=== PATIENT | male | born 1950 | race Two or more races ===

== ENCOUNTER 2017-08-04 11:56 | Inpatient (IN) | payer OTHER, MEDICAID ==
[~2017-08-04] VITALS: Ht 182.9 cm; Wt 59.9 kg
[2017-08-04] MEDS ORDERED: SODIUM CHLORIDE 0.9% 1,000 ML IV ONE ×2 (12:36→15:06)
[2017-08-04] MEDS ORDERED: ONDANSETRON HCL 4MG/2ML VIAL IV STA (12:36)
[2017-08-04] MEDS ORDERED: MORPHINE SULFATE 10 MG/ML CPJ IV ONE ×2 (12:45→15:15)
[2017-08-04 13:04] LABS: BASOPHILS % 0.7 % (0.0-2.0); EOSINOPHILS % 2.7 % (0.0-5.0); HEMOGLOBIN. 9.1 g/dL (14.0-18.0); LYMPHOCYTES % 11.4 % (20.0-50.0); MEAN CORPUSCULAR HEMOGLOBIN 39.3 pg (28.0-32.0); MEAN CORPUSCULAR VOLUME 112.2 fL (80.0-94.0); MEAN PLATELET VOLUME 6.8 fl (7.4-10.4); MONOCYTES % 7.6 % (2.0-8.0); NEUTROPHILS % 77.6 % (40.0-76.0); PLATELET 198 x1000/uL (130-400); RED BLOOD CELL COUNT 2.31 mill/uL (4.7-6.1); RED CELL DISTRIBUTION WIDTH 14.8 % (11.6-14.6)
[2017-08-04 13:11] LABS: CLARITY URINE CLEAR (CLEAR); COLOR URINE YELLOW (YELLOW); GLUCOSE URINE NEGATIVE (NEGATIVE); KETONES URINE TRACE (NEGATIVE); LEUKOCYTE ESTERASE URINE NEGATIVE (NEGATIVE); NITRITE URINE NEGATIVE (NEGATIVE); OCCULT BLOOD URINE 3+ (NEGATIVE); PH URINE 5.5 (4.5-8.0); PROTEIN URINE 2+ (NEGATIVE); SPECIFIC GRAVITY URINE 1.019 (1.005-1.030); UROBILINOGEN URINE 0.2 E.U./dL (0.2-1.0)
[2017-08-04 13:23] LABS: CARBON DIOXIDE 19 mEq/L (21-32); CHLORIDE 106 mEq/L (98-107)
[2017-08-04 13:25] LABS: TROPONIN I < 0.02 ng/mL (0.00-0.04)
[2017-08-04 13:29] LABS: *AMPHETAMINES SCREEN URINE NEGATIVE (NEGATIVE); *BARBITURATES SCREEN URINE NEGATIVE (NEGATIVE); *BENZODIAZEPINES SCREEN URINE NEGATIVE (NEGATIVE); *COCAINE SCREEN URINE NEGATIVE (NEGATIVE); CANNABINOID URINE SCREEN PRESUMTIVE POSITIVE (NEGATIVE); METHADONE URINE SCREEN NEGATIVE (NEGATIVE); OPIATES URINE SCREEN NEGATIVE (NEGATIVE); PHENCYCLIDINE URINE SCREEN NEGATIVE (NEGATIVE)
[2017-08-04 13:36] LABS: PLATELET ESTIMATE NORMAL
[2017-08-04] MEDS ORDERED: ONDANSETRON HCL 4MG/2ML VIAL IV ONE (15:15)
[2017-08-04] MEDS ORDERED: CEFTRIAXONE 1 G PREMIX 50 ML IV ONE (15:15)
[2017-08-04] MEDS ORDERED: DIPHENHYDRAMINE 50MG/ML VIAL IV PRN (20:15)
[2017-08-04] MEDS ORDERED: MAGNESIUM/ALUMINUM HYDROXIDE/SIMETHICONE 30ML UDC PO PRN (20:15)
[2017-08-04] MEDS ORDERED: ACETAMINOPHEN 325MG TABLET PO PRN (20:15)
[2017-08-04] MEDS ORDERED: KETOROLAC 30MG/ML VIAL IV NR (20:30)
[2017-08-04] MEDS ORDERED: HYDRALAZINE 20MG/ML VIAL IV PRN (20:30)
[2017-08-04 20:40] VITALS: BP 150/87
[2017-08-04] MEDS: HYDROMORPHONE HCL/PF 2MG/ML CPJ IV PRN (21:50)
[2017-08-04] MEDS: TAMSULOSIN HCL 0.4MG SR CAPSULE PO SCH (22:26)
[2017-08-04] MEDS: SODIUM CHLORIDE 0.9% 1,000 ML IV SCH (23:44)
[2017-08-04] MEDS: CLONIDINE 0.1MG TABLET PO PRN (23:52)
[2017-08-05] VITALS: BP 165/88
[2017-08-05] MEDS: HYDROMORPHONE HCL/PF 2MG/ML CPJ IV PRN ×5 (02:51→23:56)
[2017-08-05 04:00] VITALS: BP 134/69
[2017-08-05] MEDS ORDERED: BACL-141 PO (05:26)
[2017-08-05 07:09] LABS: EOSINOPHILS % 4.5 % (0.0-5.0); HEMATOCRIT. 22.8 % (42.0-52.0); HEMOGLOBIN. 8.1 g/dL (14.0-18.0); LYMPHOCYTES % 12.6 % (20.0-50.0); MEAN CORPUSCULAR HEMOGLOBIN 40.8 pg (28.0-32.0); MEAN CORPUSCULAR VOLUME 114.6 fL (80.0-94.0); MEAN PLATELET VOLUME 7.5 fl (7.4-10.4); MONOCYTES % 10.3 % (2.0-8.0); NEUTROPHILS % 71.6 % (40.0-76.0); PLATELET 187 x1000/uL (130-400); RED BLOOD CELL COUNT 1.99 mill/uL (4.7-6.1); RED CELL DISTRIBUTION WIDTH 14.9 % (11.6-14.6)
[2017-08-05 07:56] LABS: PHOSPHORUS 4.8 mg/dL (2.5-4.9)
[2017-08-05 08:00] VITALS: BP 131/78
[2017-08-05 08:29] LABS: VITAMIN B12 SERUM 287 pg/mL (211-911)
[2017-08-05] MEDS: PANTOPRAZOLE SODIUM 40 MG/VIAL IV SCH (08:43)
[2017-08-05] MEDS: TAMSULOSIN HCL 0.4MG SR CAPSULE PO SCH (08:43)
[2017-08-05 11:56] VITALS: BP 143/65
[2017-08-05] MEDS ORDERED: CYANOCOBALAMIN 1000MCG/ML VIAL IM SCH (13:15)
[2017-08-05] MEDS: SODIUM CHLORIDE 0.9% 1,000 ML IV SCH ×2 (13:55→23:49)
[2017-08-05 15:46] VITALS: BP 143/76
[2017-08-05 20:00] VITALS: BP 148/77
[2017-08-06] VITALS: BP 144/72
[2017-08-06 04:00] VITALS: BP 144/69
[2017-08-06 07:21] LABS: BASOPHILS % 0.5 % (0.0-2.0); EOSINOPHILS % 4.5 % (0.0-5.0); HEMATOCRIT. 22.2 % (42.0-52.0); HEMOGLOBIN. 7.9 g/dL (14.0-18.0); LYMPHOCYTES % 13.4 % (20.0-50.0); MEAN CORPUSCULAR HEMOGLOBIN 42.5 pg (28.0-32.0); MEAN CORPUSCULAR VOLUME 119.2 fL (80.0-94.0); MEAN PLATELET VOLUME 7.5 fl (7.4-10.4); MONOCYTES % 11.1 % (2.0-8.0); NEUTROPHILS % 70.5 % (40.0-76.0); PLATELET 187 x1000/uL (130-400); RED BLOOD CELL COUNT 1.87 mill/uL (4.7-6.1); RED CELL DISTRIBUTION WIDTH 14.5 % (11.6-14.6)
[2017-08-06 08:00] VITALS: BP 166/83
[2017-08-06] MEDS: TAMSULOSIN HCL 0.4MG SR CAPSULE PO SCH (08:17)
[2017-08-06] MEDS: PANTOPRAZOLE SODIUM 40 MG/VIAL IV SCH (08:17)
[2017-08-06] MEDS: HYDROMORPHONE HCL/PF 2MG/ML CPJ IV PRN ×4 (08:18→22:10)
[2017-08-06] MEDS: ONDANSETRON HCL 4MG/2ML VIAL IV PRN ×2 (08:29→21:30)
[2017-08-06 12:00] VITALS: BP 148/69
[2017-08-06 16:00] VITALS: BP 155/86
[2017-08-06] MEDS: SODIUM CHLORIDE 0.9% 1,000 ML IV SCH (16:48)
[2017-08-06 20:00] VITALS: BP 165/66
[2017-08-07] VITALS: BP 159/87
[2017-08-07] MEDS: SODIUM CHLORIDE 0.9% 1,000 ML IV SCH ×2 (00:48→10:43)
[2017-08-07] MEDS: HYDROMORPHONE HCL/PF 2MG/ML CPJ IV PRN ×5 (00:55→21:02)
[2017-08-07 04:00] VITALS: BP 165/77
[2017-08-07 06:58] LABS: BASOPHILS % 0.5 % (0.0-2.0); EOSINOPHILS % 3.5 % (0.0-5.0); HEMATOCRIT. 23.3 % (42.0-52.0); HEMOGLOBIN. 7.8 g/dL (14.0-18.0); LYMPHOCYTES % 10.9 % (20.0-50.0); MEAN CORPUSCULAR HEMOGLOBIN 38.2 pg (28.0-32.0); MEAN CORPUSCULAR VOLUME 113.3 fL (80.0-94.0); MONOCYTES % 9.5 % (2.0-8.0); NEUTROPHILS % 75.6 % (40.0-76.0); PLATELET 181 x1000/uL (130-400); RED BLOOD CELL COUNT 2.05 mill/uL (4.7-6.1); RED CELL DISTRIBUTION WIDTH 13.9 % (11.6-14.6)
[2017-08-07 07:51] VITALS: BP 157/84
[2017-08-07] MEDS: PANTOPRAZOLE SODIUM 40 MG/VIAL IV SCH (08:34)
[2017-08-07] MEDS: AMLODIPINE 5MG TABLET PO SCH (08:35)
[2017-08-07] MEDS: TAMSULOSIN HCL 0.4MG SR CAPSULE PO SCH (08:35)
[2017-08-07 09:03] LABS: CARBON DIOXIDE 17 mEq/L (21-32); CHLORIDE 108 mEq/L (98-107); CREATINE KINASE 393 IU/L (39-308); PHOSPHORUS 5.1 mg/dL (2.5-4.9); TOTAL IRON BINDING CAPACITY 225 ug/dL (250-450)
[2017-08-07 12:07] VITALS: BP 101/67
[2017-08-07] MEDS ORDERED: SODIUM BICARBONATE 8.4% 1 MEQ/ML 50ML SYR IV SCH (15:45)
[2017-08-07 16:00] VITALS: BP 155/75
[2017-08-07 20:00] VITALS: BP 150/76
[2017-08-07 22:57] LABS: BG BASE EXCESS -10.1 mmol/L (-2.0-2.0); BG CARBOXYHEMOGLOBIN 0.3 % (0.5-1.5); BG DEOXYHEMOGLOBIN 2.3 % (0.0-5.0); BG FRACTION INSPIRED OXYGEN 21; BG HCO3 ACT 15.5 mmol/L (22.0-26.0); BG METHEMOGLOBIN 0.5 % (0.0-1.5); BG OXYGEN SATURATION 97.7 % (92.0-98.5); BG OXYHEMOGLOBIN 96.9 % (94.0-97.0); BG PO2 110.2 mmHg (75.0-100.0); BG SAMPLE SITE RIGHT RADIAL; BG TOTAL HEMOGLOBIN 8.3 g/dL (12.0-18.0); BG VENT MODE ROOM AIR
[2017-08-08] VITALS: BP 163/92
[2017-08-08] MEDS ORDERED: CEFTRIAXONE 1 G PREMIX 50 ML IV SCH
[2017-08-08] MEDS: SODIUM CHLORIDE 0.9% 1,000 ML IV SCH (00:21)
[2017-08-08] MEDS: CLONIDINE 0.1MG TABLET PO PRN (00:34)
[2017-08-08] MEDS: HYDROMORPHONE HCL/PF 2MG/ML CPJ IV PRN ×3 (00:34→09:27)
[2017-08-08 03:44] VITALS: BP 135/85
[2017-08-08] MEDS: CITRIC ACID/SODIUM CITRATE SOLN 30ML UDC PO SCH ×2 (05:12→14:59)
[2017-08-08 07:34] VITALS: BP 157/68
[2017-08-08 07:36] LABS: BASOPHILS % 0.6 % (0.0-2.0); EOSINOPHILS % 5.9 % (0.0-5.0); HEMATOCRIT. 22.1 % (42.0-52.0); HEMOGLOBIN. 7.6 g/dL (14.0-18.0); LYMPHOCYTES % 14.6 % (20.0-50.0); MEAN CORPUSCULAR HEMOGLOBIN 37.8 pg (28.0-32.0); MEAN CORPUSCULAR VOLUME 110.5 fL (80.0-94.0); MEAN PLATELET VOLUME 7.4 fl (7.4-10.4); MONOCYTES % 12.2 % (2.0-8.0); NEUTROPHILS % 66.7 % (40.0-76.0); PLATELET 192 x1000/uL (130-400); RED CELL DISTRIBUTION WIDTH 13.9 % (11.6-14.6)
[2017-08-08] MEDS: PANTOPRAZOLE SODIUM 40 MG/VIAL IV SCH (08:23)
[2017-08-08] MEDS: AMLODIPINE 5MG TABLET PO SCH (08:23)
[2017-08-08] MEDS: TAMSULOSIN HCL 0.4MG SR CAPSULE PO SCH (08:23)
[2017-08-08 12:24] VITALS: BP 157/89
[2017-08-08] MEDS ORDERED: EPOETIN ALFA 10000UNITS/ML VIAL SUBCUT NR ×3 (14:30→21:00)
[2017-08-08] MEDS ORDERED: EPOETIN ALFA 10000UNITS/ML VIAL SUBCUT SCH (14:30)
[2017-08-08] MEDS ORDERED: HYDRALAZINE HCL 50MG TABLET PO SCH ×2 (14:30→21:00)
[2017-08-08] MEDS ORDERED: HYDRALAZINE 20MG/ML VIAL IV PRN (14:30)
[2017-08-08 15:12] VITALS: BP 144/86
[2017-08-09] MEDS ORDERED: EPOETIN ALFA 10000UNITS/ML VIAL SUBCUT SCH (21:00)
== END 2017-08-08 16:30 | disposition home or self-care (01) | DRG 683 ==
LOC: ER 12:49 → 8WST 15:30 → EDBEDREQ 15:37 → ENRESERV 19:43
PROVIDERS: ADMIT Internal Medicine; ATTEND Internal Medicine
DX: N17.9 Acute kidney failure, unspecified (principal); I12.0 Hypertensive chronic kidney disease with stage 5 chronic kidney disease or end stage renal disease; E87.5 Hyperkalemia; K76.0 Fatty (change of) liver, not elsewhere classified; N13.2 Hydronephrosis with renal and ureteral calculous obstruction; R16.0 Hepatomegaly, not elsewhere classified; B19.20 Unspecified viral hepatitis C without hepatic coma; N18.5 Chronic kidney disease, stage 5; D64.9 Anemia, unspecified; D75.89 Other specified diseases of blood and blood-forming organs; E86.9 Volume depletion, unspecified; F17.210 Nicotine dependence, cigarettes, uncomplicated; Z86.73 Personal history of transient ischemic attack (TIA), and cerebral infarction without residual deficits; Z79.899 Other long term (current) drug therapy; N40.0 Benign prostatic hyperplasia without lower urinary tract symptoms; K80.20 Calculus of gallbladder without cholecystitis without obstruction
CPT/HCPCS: 36415; 36600; 71010; 74176; 76705; 80048; 80053; 80076; 80305; 81001; 82375; 82550; 82575; 82607; 82805; 83540; 83550; 83690; 83735; 83880; 84100; 84484; 85025; 85610; 87070; 93005; 96361; 96374; 96375; 99285; C9113; J0696; J0885; J1170; J2270; J2405; J3420; J3490; J7030

== ENCOUNTER 2018-09-20 10:26 | Inpatient (IN) | payer OTHER, MEDICAID ==
[~2018-09-20] VITALS: Ht 177.8 cm; Wt 63.5 kg
[~2018-09-20 10:26] MED LIST: BACL-141 PO
[2018-09-20] MEDS ORDERED: ASPIRIN 81MG TABLET PO ONE (11:30)
[2018-09-20 12:42] LABS: CHLORIDE 103 mEq/L (98-107)
[2018-09-20 12:53] LABS: MEAN CORPUSCULAR HEMOGLOBIN 35.7 pg (28.0-32.0); MEAN CORPUSCULAR VOLUME 104.5 fL (80.0-94.0); MEAN PLATELET VOLUME 6.9 fl (7.4-10.4); PLATELET 170 x1000/uL (130-400); RED BLOOD CELL COUNT 1.77 mill/uL (4.7-6.1); RED CELL DISTRIBUTION WIDTH 18.6 % (11.6-14.6)
[2018-09-20 13:02] LABS: HEMATOCRIT. 18.5 % (42.0-52.0); HEMOGLOBIN. 6.3 g/dL (14.0-18.0)
[2018-09-20 13:33] LABS: PLATELET ESTIMATE NORMAL
[2018-09-20] MEDS ORDERED: ONDANSETRON HCL 4MG/2ML INJ IV ONE (14:00)
[2018-09-20] MEDS ORDERED: DOCUSATE SODIUM 100MG CAPSULE PO PRN (15:15)
[2018-09-20] MEDS ORDERED: HYDROCODONE/APAP 7.5/325MG 1 TAB TABLET PO PRN (15:15)
[2018-09-20] MEDS ORDERED: LORAZEPAM 2MG/ML CPJ IV PRN (15:15)
[2018-09-20] MEDS ORDERED: MAGNESIUM/ALUMINUM HYDROXIDE/SIMETHICONE 30ML UDC PO PRN (15:15)
[2018-09-20] MEDS ORDERED: HYDROMORPHONE HCL/PF 2MG/ML CPJ IV PRN (15:15)
[2018-09-20] MEDS ORDERED: IPRATROPIUM/ALBUTEROL 0.5-3(2.5)MG/3ML NEB INH PRN (15:15)
[2018-09-20] MEDS ORDERED: HYDRALAZINE 20MG/ML VIAL IV PRN ×2 (15:15→19:45)
[2018-09-20] MEDS ORDERED: DIPHENHYDRAMINE 50MG/ML VIAL IV PRN (15:15)
[2018-09-20] MEDS ORDERED: GUAIFENESIN 200MG/10ML SUGAR FREE UDC PO PRN (15:15)
[2018-09-20] MEDS ORDERED: ACETAMINOPHEN 325MG TABLET PO PRN (15:15)
[2018-09-20] MEDS: CLONIDINE 0.1MG TABLET PO PRN (16:33)
[2018-09-20 16:45] LABS: BASOPHILS % 0.8 % (0.0-2.0); EOSINOPHILS % 0.3 % (0.0-5.0); LYMPHOCYTES % 13.2 % (20.0-50.0); MEAN CORPUSCULAR HEMOGLOBIN 34.5 pg (28.0-32.0); MEAN CORPUSCULAR VOLUME 103.1 fL (80.0-94.0); MEAN PLATELET VOLUME 6.7 fl (7.4-10.4); MONOCYTES % 6.5 % (2.0-8.0); NEUTROPHILS % 79.2 % (40.0-76.0); PLATELET 145 x1000/uL (130-400); RED BLOOD CELL COUNT 1.73 mill/uL (4.7-6.1); RED CELL DISTRIBUTION WIDTH 18.7 % (11.6-14.6)
[2018-09-20 16:50] LABS: HEMATOCRIT. 17.8 % (42.0-52.0)
[2018-09-20] MEDS: SODIUM CHLORIDE 0.9% INJ 3ML FLUSH IVF SCH (21:19)
[2018-09-20] MEDS: ONDANSETRON HCL 4MG/2ML INJ IV PRN (21:19)
[2018-09-20 21:29] VITALS: BP 164/70
[2018-09-20 21:39] VITALS: BP 164/70
[2018-09-20 22:51] VITALS: BP 166/77
[2018-09-20 23:05] LABS: CREATINE KINASE MB FRACTION 2.2 ng/mL (0.5-3.6)
[2018-09-20 23:07] VITALS: BP 164/74
[2018-09-20 23:39] VITALS: BP 166/74
[2018-09-21] VITALS (9 sets, daily range): BP systolic 151–179; BP diastolic 69–95
[2018-09-21] MEDS: CLONIDINE 0.1MG TABLET PO PRN (01:20)
[2018-09-21] MEDS: ONDANSETRON HCL 4MG/2ML INJ IV PRN (04:22)
[2018-09-21] MEDS: SODIUM CHLORIDE 0.9% INJ 3ML FLUSH IVF SCH ×3 (06:00→21:55)
[2018-09-21 06:17] LABS: CHLORIDE 106 mEq/L (98-107)
[2018-09-21 06:26] LABS: CREATINE KINASE MB FRACTION 2.2 ng/mL (0.5-3.6)
[2018-09-21 06:28] LABS: CREATINE KINASE 75 IU/L (39-308); LDL CHOLESTEROL 43 mg/dL (5-100); T4 FREE 1.05 ng/dL (0.76-1.46)
[2018-09-21 07:32] LABS: BASOPHILS % 1.4 % (0.0-2.0); EOSINOPHILS % 2.3 % (0.0-5.0); HEMATOCRIT. 26.5 % (42.0-52.0); HEMOGLOBIN. 8.8 g/dL (14.0-18.0); LYMPHOCYTES % 12.7 % (20.0-50.0); MEAN CORPUSCULAR HEMOGLOBIN 32.1 pg (28.0-32.0); MEAN CORPUSCULAR VOLUME 96.2 fL (80.0-94.0); MONOCYTES % 8.1 % (2.0-8.0); NEUTROPHILS % 75.5 % (40.0-76.0); PLATELET 133 x1000/uL (130-400); RED BLOOD CELL COUNT 2.75 mill/uL (4.7-6.1); RED CELL DISTRIBUTION WIDTH 17.6 % (11.6-14.6)
[2018-09-21 08:09] LABS: HDL CHOLESTEROL 148 mg/dL (40-59)
[2018-09-21 15:02] LABS: T4 FREE 1.11 ng/dL (0.76-1.46)
[2018-09-21 15:03] LABS: CREATINE KINASE MB FRACTION 2.1 ng/mL (0.5-3.6)
[2018-09-22] VITALS: BP 132/59
[2018-09-22 00:16] LABS: CREATINE KINASE MB FRACTION 2.2 ng/mL (0.5-3.6)
[2018-09-22 04:00] VITALS: BP 125/70
[2018-09-22] MEDS: SODIUM CHLORIDE 0.9% INJ 3ML FLUSH IVF SCH (06:50)
[2018-09-22 08:00] VITALS: BP 131/75
[2018-09-22 10:00] LABS: CREATINE KINASE MB FRACTION 1.3 ng/mL (0.5-3.6)
[2018-09-22 10:43] VITALS: BP 140/72
[2018-09-23 09:09] LABS: ALBUMIN 3.6 g/dL (2.9-4.4); ALPHA-1-GLOBULIN 0.3 g/dL (0.0-0.4); BETA GLOBULIN 0.9 g/dL (0.7-1.3); GAMMA GLOBULINS 1.5 g/dL (0.4-1.8); GLOBULIN TOTAL 3.7 g/dL (2.2-3.9); M-SPIKE 0.2 g/dL (Not Observed); TOTAL PROTEIN SERUM 7.3 g/dL (6.0-8.5)
[2018-09-24 05:22] LABS: ANTI-NUCLEAR ANTIBODIES DIRECT Negative (Negative); COMPLEMENT C3 88 mg/dL (82-167)
== END 2018-09-22 15:00 | disposition home or self-care (01) | DRG 811 ==
LOC: ER 10:26 → 7WST 14:42 → EDBEDREQTM 14:58 → EDBEDREQ 14:58 → ENRESERV 18:08
PROVIDERS: ADMIT Internal Medicine; ATTEND Internal Medicine
PROC: 30233N1 Transfusion of Nonautologous Red Blood Cells into Peripheral Vein, Percutaneous Approach (ICD-10-PCS; principal; 2018-09-20)
DX: D64.9 Anemia, unspecified (principal); N17.0 Acute kidney failure with tubular necrosis; N18.6 End stage renal disease; E44.0 Moderate protein-calorie malnutrition; I12.0 Hypertensive chronic kidney disease with stage 5 chronic kidney disease or end stage renal disease; R07.89 Other chest pain; E78.5 Hyperlipidemia, unspecified; N28.1 Cyst of kidney, acquired; R74.0 Nonspecific elevation of levels of transaminase and lactic acid dehydrogenase [LDH]; Z86.73 Personal history of transient ischemic attack (TIA), and cerebral infarction without residual deficits; Z68.20 Body mass index [BMI] 20.0-20.9, adult
CPT/HCPCS: 36415; 71045; 76770; 80061; 82550; 82553; 83036; 83880; 84155; 84165; 84439; 84443; 84484; 85379; 86038; 86160; 86850; 86900; 86920; 93005; 93306; 93970; 96374; 96375; 99285; J0360; J1170; J2060; J2405; J7040; J7050; P9016

== ENCOUNTER 2020-03-28 13:59 | Inpatient (IN) | payer MEDICARE, MEDICAID ==
[~2020-03-28] VITALS: Ht 177.8 cm; Wt 60.1 kg
[2020-03-28 15:54] LABS: BASOPHILS % 1.3 % (0.0-2.0); EOSINOPHILS % 1.8 % (0.0-5.0); HEMATOCRIT. 22.3 % (42.0-52.0); HEMOGLOBIN. 7.3 g/dL (14.0-18.0); LYMPHOCYTES % 11.3 % (20.0-50.0); MEAN CORPUSCULAR HEMOGLOBIN 37.3 pg (28.0-32.0); MEAN CORPUSCULAR VOLUME 113.6 fL (80.0-94.0); MEAN PLATELET VOLUME 7.7 fl (7.4-10.4); MONOCYTES % 7.6 % (2.0-8.0); PLATELET 175 x1000/uL (130-400); RED BLOOD CELL COUNT 1.97 mill/uL (4.7-6.1); RED CELL DISTRIBUTION WIDTH 16.7 % (11.6-14.6)
[2020-03-28 15:59] LABS: CHLORIDE 106 mEq/L (98-107)
[2020-03-28 16:05] LABS: C REACTIVE PROTEIN QUANT 1.7 mg/L (0.0-3.0); ETHANOL BLOOD < 10 mg/dL; TOTAL IRON BINDING CAPACITY 340 ug/dL (250-450)
[2020-03-28 16:07] LABS: CREATINE KINASE 58 IU/L (39-308)
[2020-03-28 16:11] LABS: D-DIMER 5.52 mg/L FEU (<0.50); PROTHROMBIN TIME 10.1 sec (9.6-11.0)
[2020-03-28 16:24] LABS: FERRITIN 14 ng/mL (22-322)
[2020-03-28] MEDS ORDERED: SODIUM BICARBONATE 8.4% 1 MEQ/ML 50ML SYR IV ONE (16:30)
[2020-03-28 16:35] LABS: HEPATITIS B SURFACE ANTIGEN NEGATIVE
[2020-03-28] MEDS ORDERED: INSULIN REGULAR (HUMULIN R) 300UNITS/3ML IV ONE (16:45)
[2020-03-28] MEDS ORDERED: CALCIUM CHLORIDE 1GM/10ML SYR IV ONE (16:45)
[2020-03-28] MEDS ORDERED: DEXTROSE 50% WATER 50ML SYRINGE IV ONE (16:45)
[2020-03-28 16:53] LABS: PLATELET ESTIMATE NORMAL
[2020-03-28 17:04] LABS: HEPATITIS A AB IGM NEGATIVE (NEGATIVE)
[2020-03-28 17:33] LABS: BG BASE EXCESS -21.9 mmol/L (-2.0-2.0); BG CARBOXYHEMOGLOBIN 0.6 % (0.5-1.5); BG DEOXYHEMOGLOBIN 1.5 % (0.0-5.0); BG FRACTION INSPIRED OXYGEN 21; BG HCO3 ACT 6.2 mmol/L (22.0-26.0); BG METHEMOGLOBIN 0.3 % (0.0-1.5); BG OXYGEN SATURATION 98.5 % (92.0-98.5); BG OXYHEMOGLOBIN 97.6 % (94.0-97.0); BG PCO2 21.2 mmHg (35.0-45.0); BG PH 7.081 (7.350-7.450); BG PO2 122.2 mmHg (75.0-100.0); BG SAMPLE SITE RIGHT RADIAL; BG VENT MODE ROOM AIR
[2020-03-28] MEDS ORDERED: CEFTRIAXONE 1 G PREMIX 50 ML IV SCH (18:15)
[2020-03-28] MEDS ORDERED: ONDANSETRON HCL 4MG/2ML INJ IV PRN (18:15)
[2020-03-28] MEDS ORDERED: ZOLPIDEM TARTRATE 5MG TABLET PO PRN (18:15)
[2020-03-28] MEDS ORDERED: SODIUM POLYSTYRENE SULFONATE 15 G/60 ML BOT PO NR (22:56)
[2020-03-29] MEDS ORDERED: DIPHENHYDRAMINE 50MG/ML VIAL ONE (02:52)
[2020-03-29 05:07] LABS: BASOPHILS % 0.9 % (0.0-2.0); EOSINOPHILS % 1.2 % (0.0-5.0); LYMPHOCYTES % 14.4 % (20.0-50.0); MEAN CORPUSCULAR HEMOGLOBIN 37.6 pg (28.0-32.0); MEAN CORPUSCULAR VOLUME 111.5 fL (80.0-94.0); MONOCYTES % 12.3 % (2.0-8.0); NEUTROPHILS % 71.2 % (40.0-76.0); PLATELET 120 x1000/uL (130-400); RED BLOOD CELL COUNT 1.72 mill/uL (4.7-6.1); RED CELL DISTRIBUTION WIDTH 16.4 % (11.6-14.6)
[2020-03-29 05:19] LABS: CLARITY URINE CLEAR (CLEAR); COLOR URINE YELLOW (YELLOW); KETONES URINE 2+ (NEGATIVE); LEUKOCYTE ESTERASE URINE TRACE (NEGATIVE); NITRITE URINE NEGATIVE (NEGATIVE); OCCULT BLOOD URINE TRACE (NEGATIVE); PROTEIN URINE 2+ (NEGATIVE); SPECIFIC GRAVITY URINE 1.015 (1.005-1.030); UROBILINOGEN URINE 0.2 E.U./dL (0.2-1.0)
[2020-03-29 05:32] LABS: *AMPHETAMINES SCREEN URINE NEGATIVE (NEGATIVE); *BARBITURATES SCREEN URINE NEGATIVE (NEGATIVE); *BENZODIAZEPINES SCREEN URINE NEGATIVE (NEGATIVE); *COCAINE SCREEN URINE NEGATIVE (NEGATIVE)
[2020-03-29 05:33] LABS: CANNABINOID URINE SCREEN PRESUMTIVE POSITIVE (NEGATIVE); METHADONE URINE SCREEN NEGATIVE (NEGATIVE); OPIATES URINE SCREEN NEGATIVE (NEGATIVE); PHENCYCLIDINE URINE SCREEN NEGATIVE (NEGATIVE)
[2020-03-29 06:40] LABS: HEMATOCRIT. 19.2 % (42.0-52.0); HEMOGLOBIN. 6.5 g/dL (14.0-18.0)
[2020-03-29 12:00] VITALS: BP 158/77
[2020-03-29] MEDS ORDERED: LIDOCAINE HCL 1% 20ML VIAL (Pyxis) INJ ONE (12:58)
[2020-03-29] MEDS: MULTIVITAMINS,THER W-MINERALS TABLET PO SCH (13:07)
[2020-03-29] MEDS: FOLIC ACID 1MG TABLET PO SCH (13:07)
[2020-03-29] MEDS: THIAMINE HCL 100MG TABLET PO SCH (13:07)
[2020-03-29] MEDS: CEFTRIAXONE 1 G PREMIX 50 ML IV SCH (13:08)
[2020-03-29] MEDS: SODIUM BICARBONATE 50 MEQ in SODIUM CHLORIDE 0.45% 1,000 ML IV SCH (15:05)
[2020-03-29 15:23] VITALS: BP 158/80
[2020-03-29 16:00] VITALS: BP 145/77
[2020-03-29] MEDS ORDERED: PNEUMOCOCCAL 23-VAL P-SAC VAC 0.5 ML IM ONE (16:15)
[2020-03-29 17:17] LABS: HEMOGLOBIN 7.1 g/dL (14.0-18.0)
[2020-03-29 17:23] LABS: HEMATOCRIT 20.3 % (42.0-52.0)
[2020-03-29 20:00] VITALS: BP 130/75
[2020-03-29 23:45] VITALS: BP 129/76
[2020-03-30] VITALS (9 sets, daily range): BP systolic 119–153; BP diastolic 63–92
[2020-03-30] MEDS: SODIUM BICARBONATE 50 MEQ in SODIUM CHLORIDE 0.45% 1,000 ML IV SCH (02:50)
[2020-03-30 06:08] LABS: BASOPHILS % 0.9 % (0.0-2.0); EOSINOPHILS % 5.3 % (0.0-5.0); HEMATOCRIT. 22.9 % (42.0-52.0); HEMOGLOBIN. 7.8 g/dL (14.0-18.0); LYMPHOCYTES % 14.2 % (20.0-50.0); MEAN CORPUSCULAR HEMOGLOBIN 33.8 pg (28.0-32.0); MEAN CORPUSCULAR VOLUME 99.5 fL (80.0-94.0); MEAN PLATELET VOLUME 7.9 fl (7.4-10.4); MONOCYTES % 8.6 % (2.0-8.0); PLATELET 91 x1000/uL (130-400); RED CELL DISTRIBUTION WIDTH 21.2 % (11.6-14.6)
[2020-03-30 06:22] LABS: PHOSPHORUS 3.5 mg/dL (2.5-4.9)
[2020-03-30] MEDS: MULTIVITAMINS,THER W-MINERALS TABLET PO SCH (09:14)
[2020-03-30] MEDS: FOLIC ACID 1MG TABLET PO SCH (09:14)
[2020-03-30] MEDS: THIAMINE HCL 100MG TABLET PO SCH (09:15)
[2020-03-30] MEDS: CEFTRIAXONE 1 G PREMIX 50 ML IV SCH (10:12)
[2020-03-30] MEDS: SODIUM CHLORIDE 0.45% 1,000 ML IV SCH (11:35)
[2020-03-30] MEDS: DIPHENHYDRAMINE 25MG CAPSULE PO PRN ×2 (15:45→22:03)
[2020-03-30] MEDS: ACETAMINOPHEN 325MG TABLET PO PRN (15:46)
[2020-03-31] VITALS: BP 140/77
[2020-03-31] MEDS: ACETAMINOPHEN 325MG TABLET PO PRN (03:57)
[2020-03-31] MEDS: SODIUM CHLORIDE 0.45% 1,000 ML IV SCH ×2 (03:59→21:53)
[2020-03-31 04:00] VITALS: BP 125/80
[2020-03-31 06:50] LABS: BASOPHILS % 0.9 % (0.0-2.0); HEMATOCRIT. 23.3 % (42.0-52.0); HEMOGLOBIN. 8.1 g/dL (14.0-18.0); LYMPHOCYTES % 17.3 % (20.0-50.0); MEAN CORPUSCULAR HEMOGLOBIN 34.7 pg (28.0-32.0); MEAN CORPUSCULAR VOLUME 99.8 fL (80.0-94.0); MEAN PLATELET VOLUME 7.8 fl (7.4-10.4); MONOCYTES % 9.2 % (2.0-8.0); NEUTROPHILS % 65.6 % (40.0-76.0); PLATELET 85 x1000/uL (130-400); RED BLOOD CELL COUNT 2.33 mill/uL (4.7-6.1); RED CELL DISTRIBUTION WIDTH 21.3 % (11.6-14.6)
[2020-03-31] MEDS: THIAMINE HCL 100MG TABLET PO SCH (08:13)
[2020-03-31] MEDS: CEFTRIAXONE 1 G PREMIX 50 ML IV SCH (08:13)
[2020-03-31] MEDS: FOLIC ACID 1MG TABLET PO SCH (08:14)
[2020-03-31] MEDS: MULTIVITAMINS,THER W-MINERALS TABLET PO SCH (08:14)
[2020-03-31 08:35] VITALS: BP 148/87
[2020-03-31 11:55] VITALS: BP 136/87
[2020-03-31 16:05] VITALS: BP 131/83
[2020-03-31 20:00] VITALS: BP 142/85
[2020-04-01] VITALS: BP 139/86
[2020-04-01 04:00] VITALS: BP 143/84
[2020-04-01 06:06] LABS: BASOPHILS % 1.4 % (0.0-2.0); EOSINOPHILS % 7.9 % (0.0-5.0); HEMATOCRIT. 24.4 % (42.0-52.0); HEMOGLOBIN. 8.3 g/dL (14.0-18.0); LYMPHOCYTES % 16.5 % (20.0-50.0); MEAN CORPUSCULAR HEMOGLOBIN 33.6 pg (28.0-32.0); MEAN CORPUSCULAR VOLUME 99.1 fL (80.0-94.0); MEAN PLATELET VOLUME 8.1 fl (7.4-10.4); MONOCYTES % 8.7 % (2.0-8.0); NEUTROPHILS % 65.5 % (40.0-76.0); PLATELET 84 x1000/uL (130-400); RED BLOOD CELL COUNT 2.46 mill/uL (4.7-6.1); RED CELL DISTRIBUTION WIDTH 21.4 % (11.6-14.6)
[2020-04-01 08:00] VITALS: BP 150/84
[2020-04-01] MEDS: CEFTRIAXONE 1 G PREMIX 50 ML IV SCH (08:40)
[2020-04-01] MEDS: MULTIVITAMINS,THER W-MINERALS TABLET PO SCH (08:40)
[2020-04-01] MEDS: FOLIC ACID 1MG TABLET PO SCH (08:40)
[2020-04-01] MEDS: DIPHENHYDRAMINE 25MG CAPSULE PO PRN (08:40)
[2020-04-01] MEDS: THIAMINE HCL 100MG TABLET PO SCH (08:40)
[2020-04-01 12:00] VITALS: BP 147/71
[2020-04-01] MEDS: SODIUM CHLORIDE 0.45% 1,000 ML IV SCH ×2 (12:30→15:46)
[2020-04-01 16:00] VITALS: BP_SYST 133; BP_SYST 141; BP_SYST 145; BP_DIAS 76; BP_DIAS 79; BP_DIAS 90
[2020-04-01 20:00] VITALS: BP 155/97
[2020-04-02] VITALS (19 sets, daily range): BP systolic 127–169; BP diastolic 66–105
[2020-04-02] MEDS: SODIUM CHLORIDE 0.45% 1,000 ML IV SCH ×2 (03:17→21:50)
[2020-04-02] MEDS ORDERED: SODIUM BICARBONATE 4% (2.4MEQ) 5ML VIAL IV ONE (09:07)
[2020-04-02] MEDS ORDERED: HEPARIN 1000 UNITS/ML 10ML ONE (09:07)
[2020-04-02] MEDS ORDERED: LIDOCAINE HCL 1% 20ML VIAL (Pyxis) INJ ONE (09:08)
[2020-04-02] MEDS ORDERED: FENTANYL CITRATE/PF 50MCG/ML 2ML VIAL ONE (09:28)
[2020-04-02] MEDS ORDERED: FENTANYL CITRATE/PF 50MCG/ML 2ML VIAL IV NR (09:45)
[2020-04-02] MEDS: FOLIC ACID 1MG TABLET PO SCH (10:40)
[2020-04-02] MEDS: MULTIVITAMINS,THER W-MINERALS TABLET PO SCH (10:40)
[2020-04-02] MEDS: THIAMINE HCL 100MG TABLET PO SCH (10:40)
[2020-04-02] MEDS: TRAMADOL 50MG TABLET PO PRN ×2 (15:55→22:30)
[2020-04-02 19:10] LABS: ANTI-NUCLEAR ANTIBODIES DIRECT Negative (Negative)
[2020-04-03] VITALS (7 sets, daily range): BP systolic 140–190; BP diastolic 82–97
[2020-04-03 06:22] LABS: EOSINOPHILS % 8.4 % (0.0-5.0); HEMATOCRIT. 24.2 % (42.0-52.0); HEMOGLOBIN. 8.3 g/dL (14.0-18.0); LYMPHOCYTES % 13.7 % (20.0-50.0); MEAN CORPUSCULAR HEMOGLOBIN 35.7 pg (28.0-32.0); MEAN CORPUSCULAR VOLUME 103.9 fL (80.0-94.0); MEAN PLATELET VOLUME 8.3 fl (7.4-10.4); MONOCYTES % 12.1 % (2.0-8.0); NEUTROPHILS % 64.8 % (40.0-76.0); PLATELET 109 x1000/uL (130-400); RED BLOOD CELL COUNT 2.33 mill/uL (4.7-6.1); RED CELL DISTRIBUTION WIDTH 20.3 % (11.6-14.6)
[2020-04-03] MEDS: MULTIVITAMINS,THER W-MINERALS TABLET PO SCH (09:07)
[2020-04-03] MEDS: THIAMINE HCL 100MG TABLET PO SCH (09:07)
[2020-04-03] MEDS: FOLIC ACID 1MG TABLET PO SCH (09:07)
[2020-04-03] MEDS: CALCIUM CARBONATE 500MG TABLET CHEW PO SCH ×2 (13:16→16:56)
[2020-04-03] MEDS: SODIUM CHLORIDE 0.45% 1,000 ML IV SCH (16:59)
[2020-04-03] MEDS: ACETAMINOPHEN 325MG TABLET PO PRN (20:34)
[2020-04-03] MEDS: DIPHENHYDRAMINE 25MG CAPSULE PO PRN (21:57)
[2020-04-04 00:45] VITALS: BP 169/89
[2020-04-04 04:00] VITALS: BP 145/78
[2020-04-04 07:08] LABS: HEMATOCRIT. 24.6 % (42.0-52.0); HEMOGLOBIN. 8.4 g/dL (14.0-18.0); LYMPHOCYTES % 17.3 % (20.0-50.0); MEAN CORPUSCULAR HEMOGLOBIN 35.1 pg (28.0-32.0); MEAN CORPUSCULAR VOLUME 102.4 fL (80.0-94.0); MEAN PLATELET VOLUME 8.1 fl (7.4-10.4); MONOCYTES % 10.8 % (2.0-8.0); NEUTROPHILS % 59.9 % (40.0-76.0); PLATELET 136 x1000/uL (130-400); RED BLOOD CELL COUNT 2.41 mill/uL (4.7-6.1); RED CELL DISTRIBUTION WIDTH 20.8 % (11.6-14.6)
[2020-04-04] MEDS: SODIUM CHLORIDE 0.45% 1,000 ML IV SCH (07:10)
[2020-04-04 08:00] VITALS: BP 161/76
[2020-04-04] MEDS: CALCIUM CARBONATE 500MG TABLET CHEW PO SCH (08:20)
[2020-04-04] MEDS: THIAMINE HCL 100MG TABLET PO SCH (08:21)
[2020-04-04] MEDS: FOLIC ACID 1MG TABLET PO SCH (08:21)
[2020-04-04] MEDS: MULTIVITAMINS,THER W-MINERALS TABLET PO SCH (08:21)
[2020-04-04] MEDS ORDERED: THIA100T72 PO (08:52)
[2020-04-04] MEDS ORDERED: CALC500T35 PO (08:52)
[2020-04-04] MEDS ORDERED: FOLI-43 PO (08:52)
[2020-04-04 09:14] VITALS: BP 163/76
[2020-04-04 10:27] VITALS: BP 142/82
== END 2020-04-04 11:45 | disposition home or self-care (01) | DRG 673 ==
LOC: ER 13:59 → EDBEDREQ 16:47 → EDBEDREQSVC 16:48 → MICUSO 16:49 → EDBEDREQ 16:52 → CANRESERV 21:11 → ENRESERV 21:11 → CANRESERV 21:49 → ENRESERV 21:49 → EDBEDREQSVC 22:58 → 7WST 03-29 09:26 → MICUSO 03-29 09:46 → 7WST 03-29 09:51 → 6WST 03-30 00:35
PROVIDERS: ADMIT Internal Medicine; ATTEND Internal Medicine
PROC: 02HV33Z Insertion of Infusion Device into Superior Vena Cava, Percutaneous Approach (ICD-10-PCS; principal; 2020-03-29)
PROC: B548ZZA Ultrasonography of Superior Vena Cava, Guidance (ICD-10-PCS; 2020-03-29)
PROC: 30233N1 Transfusion of Nonautologous Red Blood Cells into Peripheral Vein, Percutaneous Approach (ICD-10-PCS; 2020-03-29)
PROC: 5A1D70Z Performance of Urinary Filtration, Intermittent, Less than 6 Hours Per Day (ICD-10-PCS; 2020-03-30)
PROC: 5A1D70Z Performance of Urinary Filtration, Intermittent, Less than 6 Hours Per Day (ICD-10-PCS; 2020-04-01)
PROC: 0JH63XZ Insertion of Tunneled Vascular Access Device into Chest Subcutaneous Tissue and Fascia, Percutaneous Approach (ICD-10-PCS; 2020-04-02)
PROC: 02PY03Z Removal of Infusion Device from Great Vessel, Open Approach (ICD-10-PCS; 2020-04-02)
PROC: 02H633Z Insertion of Infusion Device into Right Atrium, Percutaneous Approach (ICD-10-PCS; 2020-04-02)
PROC: 0JH63XZ Insertion of Tunneled Vascular Access Device into Chest Subcutaneous Tissue and Fascia, Percutaneous Approach (ICD-10-PCS; 2020-04-02)
PROC: B5181ZA Fluoroscopy of Superior Vena Cava using Low Osmolar Contrast, Guidance (ICD-10-PCS; 2020-04-02)
DX: I12.9 Hypertensive chronic kidney disease with stage 1 through stage 4 chronic kidney disease, or unspecified chronic kidney disease (principal); N17.0 Acute kidney failure with tubular necrosis; E87.2 Acidosis; N39.0 Urinary tract infection, site not specified; N18.4 Chronic kidney disease, stage 4 (severe); G90.8 Other disorders of autonomic nervous system; D69.6 Thrombocytopenia, unspecified; E87.5 Hyperkalemia; F12.90 Cannabis use, unspecified, uncomplicated; B19.20 Unspecified viral hepatitis C without hepatic coma; D50.0 Iron deficiency anemia secondary to blood loss (chronic); E86.1 Hypovolemia; F10.10 Alcohol abuse, uncomplicated; F19.10 Other psychoactive substance abuse, uncomplicated; D63.8 Anemia in other chronic diseases classified elsewhere; Z20.828 Contact with and (suspected) exposure to other viral communicable diseases; F17.210 Nicotine dependence, cigarettes, uncomplicated; K74.60 Unspecified cirrhosis of liver; Z71.41 Alcohol abuse counseling and surveillance of alcoholic; Z99.2 Dependence on renal dialysis; Z86.73 Personal history of transient ischemic attack (TIA), and cerebral infarction without residual deficits; Z71.6 Tobacco abuse counseling; Z79.899 Other long term (current) drug therapy
CPT/HCPCS: 36415; 36558; 36589; 36600; 71045; 74176; 76770; 76937; 77001; 80048; 80053; 80305; 80320; 81003; 82375; 82550; 82565; 82570; 82728; 82805; 82962; 83540; 83550; 83605; 83615; 83880; 83970; 84100; 84145; 84156; 84484; 85014; 85018; 85025; 85044; 85049; 85379; 85384; 86038; 86140; 86160; 86705; 86706; 86709; 86803; 86850; 86900; 86920; 87340; 93005; 93970; 99152; 99153; 99291; C1752; C1769; J0696; J1200; J1644; J1815; J2405; J3010; J3490; P9016; Q0163; G0480; G0500; U0003-CS

== ENCOUNTER 2020-12-11 09:32 | Inpatient (IN) | payer OTHER, MEDICAID ==
[~2020-12-11] VITALS: Ht 177.8 cm; Wt 56.7 kg
[~2020-12-11 09:32] MED LIST changes: -BACL-141 PO; +CALC500T35 PO; +FOLI-43 PO; +THIA100T72 PO
[2020-12-11 10:25] LABS: CHLORIDE 102 mEq/L (98-107)
[2020-12-11 10:28] LABS: PROTHROMBIN TIME 11.1 sec (9.6-11.0)
[2020-12-11 10:31] LABS: PHOSPHORUS 1.6 mg/dL (2.5-4.9)
[2020-12-11 10:48] LABS: MEAN CORPUSCULAR VOLUME 116.1 fL (80.0-94.0); PLATELET 157 x1000/uL (130-400); RED BLOOD CELL COUNT 1.81 mill/uL (4.7-6.1); RED CELL DISTRIBUTION WIDTH 17.2 % (11.6-14.6)
[2020-12-11 12:52] LABS: PLATELET ESTIMATE NORMAL
[2020-12-11 15:30] VITALS: BP 155/93
[2020-12-11 16:10] LABS: HEMATOCRIT 24.5 % (42.0-52.0); HEMOGLOBIN 8.4 g/dL (14.0-18.0)
[2020-12-11] MEDS ORDERED: ACETAMINOPHEN 325MG TABLET PO PRN (16:15)
[2020-12-11] MEDS ORDERED: ONDANSETRON HCL 4MG/2ML INJ IV PRN (16:15)
[2020-12-11] MEDS ORDERED: CLONIDINE 0.1MG TABLET PO PRN (16:15)
[2020-12-11 16:28] LABS: HEMATOCRIT. 24.1 % (42.0-52.0); HEMOGLOBIN. 8.4 g/dL (14.0-18.0); MEAN CORPUSCULAR HEMOGLOBIN 37.8 pg (28.0-32.0); MEAN CORPUSCULAR VOLUME 108.8 fL (80.0-94.0); PLATELET 135 x1000/uL (130-400); RED BLOOD CELL COUNT 2.22 mill/uL (4.7-6.1)
[2020-12-11 16:33] LABS: CHLORIDE 102 mEq/L (98-107)
[2020-12-11 17:08] VITALS: BP 155/93
[2020-12-11 17:51] LABS: PLATELET ESTIMATE NORMAL
== END 2020-12-11 18:04 | disposition home or self-care (01) | DRG 811 ==
LOC: ER 09:32 → 6WST 12:25 → EDBEDREQ 12:49 → EDBEDREQTM 12:49 → ENRESERV 13:05
PROVIDERS: ADMIT Internal Medicine; ATTEND Internal Medicine
PROC: 30233N1 Transfusion of Nonautologous Red Blood Cells into Peripheral Vein, Percutaneous Approach (ICD-10-PCS; principal; 2020-12-11)
DX: D64.9 Anemia, unspecified (principal); N18.6 End stage renal disease; I12.0 Hypertensive chronic kidney disease with stage 5 chronic kidney disease or end stage renal disease; E87.6 Hypokalemia; F17.210 Nicotine dependence, cigarettes, uncomplicated; Z99.2 Dependence on renal dialysis; Z86.73 Personal history of transient ischemic attack (TIA), and cerebral infarction without residual deficits
CPT/HCPCS: 36415; 80053; 80069; 82962; 84484; 85014; 85018; 85025; 86850; 86900; 86920; 99285; P9016

== ENCOUNTER 2022-04-20 11:46 | Emergency (ER) | payer MEDICARE, MEDICAID ==
[~2022-04-20] VITALS: Ht 177.8 cm; Wt 69.0 kg
[2022-04-20 12:03] VITALS: BP 104/61
== END 2022-04-20 16:15 | disposition left against medical advice (07) ==
LOC: ER 11:46
DX: Z53.21 Procedure and treatment not carried out due to patient leaving prior to being seen by health care provider (principal); D64.9 Anemia, unspecified; R94.31 Abnormal electrocardiogram [ECG] [EKG]; N18.6 End stage renal disease; Z99.2 Dependence on renal dialysis
CPT/HCPCS: 93005; 99283

== ENCOUNTER 2022-10-29 15:42 | Emergency (ER) | payer OTHER, MEDICAID ==
[~2022-10-29] VITALS: Ht 177.8 cm; Wt 75.0 kg
[2022-10-29 16:01] VITALS: BP 103/71
== END 2022-10-29 17:20 | disposition home or self-care (01) ==
LOC: ER 15:42
DX: T82.49XA Other complication of vascular dialysis catheter, initial encounter (principal); N18.6 End stage renal disease; Z99.2 Dependence on renal dialysis; Y84.1 Kidney dialysis as the cause of abnormal reaction of the patient, or of later complication, without mention of misadventure at the time of the procedure; Y92.89 Other specified places as the place of occurrence of the external cause
CPT/HCPCS: 99283

== ENCOUNTER 2022-10-30 11:59 | Emergency (ER) | payer OTHER, MEDICAID ==
[~2022-10-30] VITALS: Ht 165.1 cm; Wt 67.0 kg
[2022-10-30 14:20] VITALS: BP 138/84
== END 2022-10-30 16:55 | disposition home or self-care (01) ==
LOC: ER 11:59
DX: T85.618A Breakdown (mechanical) of other specified internal prosthetic devices, implants and grafts, initial encounter (principal); X58.XXXA Exposure to other specified factors, initial encounter; F17.200 Nicotine dependence, unspecified, uncomplicated
CPT/HCPCS: 99281

== ENCOUNTER 2022-12-29 14:21 | Inpatient (IN) | payer OTHER, MEDICAID ==
[~2022-12-29] VITALS: Ht 177.8 cm; Wt 52.6 kg
[2022-12-29 15:12] LABS: BASOPHILS % 2.6 % (0.0-2.0); EOSINOPHILS % 4.5 % (0.0-5.0); HEMATOCRIT. 22.3 % (42.0-52.0); HEMOGLOBIN. 7.7 g/dL (14.0-18.0); LYMPHOCYTES % 16.3 % (20.0-50.0); MEAN CORPUSCULAR HEMOGLOBIN 42.5 pg (28.0-32.0); MEAN CORPUSCULAR VOLUME 122.5 fL (80.0-94.0); MEAN PLATELET VOLUME 6.2 fl (7.4-10.4); MONOCYTES % 8.8 % (2.0-8.0); NEUTROPHILS % 67.8 % (40.0-76.0); PLATELET 132 x1000/uL (130-400); RED BLOOD CELL COUNT 1.82 mill/uL (4.7-6.1); RED CELL DISTRIBUTION WIDTH 17.9 % (11.6-14.6)
[2022-12-29 15:14] LABS: CHLORIDE 94 mEq/L (98-107)
[2022-12-29 20:36] LABS: PLATELET ESTIMATE NORMAL
[2022-12-30] VITALS (27 sets, daily range): BP systolic 105–172; BP diastolic 65–98
[2022-12-30] MEDS ORDERED: ACETAMINOPHEN 650MG/20.3ML UDC PO PRN (04:15)
[2022-12-30] MEDS ORDERED: ONDANSETRON HCL 4MG/2ML INJ IV PRN ×2 (05:30→12:15)
[2022-12-30] MEDS ORDERED: CEFAZOLIN 1000MG PREMIX 50 ML IV NR (07:00)
[2022-12-30 07:20] LABS: PROTHROMBIN TIME 10.7 sec (9.6-11.0)
[2022-12-30] MEDS ORDERED: LIDOCAINE HCL 1% 10 MG/ML 10ML VIAL ONE (07:21)
[2022-12-30] MEDS ORDERED: FENTANYL CITRATE/PF 50MCG/ML 2ML VIAL ONE (07:39)
[2022-12-30] MEDS ORDERED: FENTANYL CITRATE/PF 50MCG/ML 2ML VIAL IV NR (08:00)
[2022-12-30] MEDS ORDERED: DIPHENHYDRAMINE 50MG/ML VIAL ONE (08:16)
[2022-12-30 08:27] LABS: HEMATOCRIT. 24.3 % (42.0-52.0); HEMOGLOBIN. 7.5 g/dL (14.0-18.0); MEAN CORPUSCULAR VOLUME 116.5 fL (80.0-94.0); MEAN PLATELET VOLUME 6.3 fl (7.4-10.4); PLATELET 136 x1000/uL (130-400); RED BLOOD CELL COUNT 2.08 mill/uL (4.7-6.1)
[2022-12-30] MEDS ORDERED: DIPHENHYDRAMINE 50MG/ML VIAL IV NR (08:30)
[2022-12-30] MEDS: SODIUM BICARBONATE 650 MG TABLET PO SCH ×3 (08:54→17:00)
[2022-12-30] MEDS ORDERED: PANTOPRAZOLE 40MG DR TABLET PO SCH (09:00)
[2022-12-30] MEDS ORDERED: CLONIDINE 0.1MG TABLET PO PRN (12:15)
[2022-12-30 12:30] LABS: HEPATITIS B SURFACE ANTIGEN NEGATIVE
[2022-12-30 13:50] LABS: PLATELET ESTIMATE NORMAL
[2022-12-30] MEDS: ENOXAPARIN 30MG/0.3ML SYR SUBCUT SCH (15:23)
[2022-12-30] MEDS: ACETAMINOPHEN 325MG TABLET PO PRN ×2 (16:57→22:43)
[2022-12-30 16:59] LABS: HEPATITIS B SURFACE ANTIGEN NEGATIVE
[2022-12-31] VITALS (8 sets, daily range): BP systolic 117–155; BP diastolic 58–90
[2022-12-31] MEDS: PANTOPRAZOLE 40MG DR TABLET PO SCH (06:33)
[2022-12-31 08:11] LABS: BASOPHILS % 1.7 % (0.0-2.0); EOSINOPHILS % 9.2 % (0.0-5.0); LYMPHOCYTES % 20.5 % (20.0-50.0); MEAN CORPUSCULAR HEMOGLOBIN 36.3 pg (28.0-32.0); MEAN CORPUSCULAR VOLUME 109.8 fL (80.0-94.0); MEAN PLATELET VOLUME 6.5 fl (7.4-10.4); MONOCYTES % 10.6 % (2.0-8.0); PLATELET 97 x1000/uL (130-400); RED BLOOD CELL COUNT 1.87 mill/uL (4.7-6.1)
[2022-12-31 08:14] LABS: HEMATOCRIT. 20.6 % (42.0-52.0); HEMOGLOBIN. 6.8 g/dL (14.0-18.0)
[2022-12-31] MEDS: SODIUM BICARBONATE 650 MG TABLET PO SCH ×3 (08:39→17:00)
[2022-12-31] MEDS: ENOXAPARIN 30MG/0.3ML SYR SUBCUT SCH (13:00)
[2022-12-31] MEDS ORDERED: EPOETIN ALFA-EPBX 4,000 UNIT/ML VIAL SUBCUT SCH (21:00)
[2022-12-31] MEDS: ACETAMINOPHEN 325MG TABLET PO PRN (21:24)
[2023-01-01] VITALS (17 sets, daily range): BP systolic 116–156; BP diastolic 64–91
[2023-01-01] MEDS: ACETAMINOPHEN 325MG TABLET PO PRN ×2 (06:30→18:17)
[2023-01-01] MEDS: PANTOPRAZOLE 40MG DR TABLET PO SCH (06:30)
[2023-01-01 07:44] LABS: BASOPHILS % 1.6 % (0.0-2.0); HEMATOCRIT. 25.6 % (42.0-52.0); HEMOGLOBIN. 8.5 g/dL (14.0-18.0); LYMPHOCYTES % 17.8 % (20.0-50.0); MEAN CORPUSCULAR HEMOGLOBIN 34.7 pg (28.0-32.0); MEAN CORPUSCULAR VOLUME 104.8 fL (80.0-94.0); MEAN PLATELET VOLUME 7.4 fl (7.4-10.4); NEUTROPHILS % 63.6 % (40.0-76.0); PLATELET 95 x1000/uL (130-400); RED BLOOD CELL COUNT 2.44 mill/uL (4.7-6.1); RED CELL DISTRIBUTION WIDTH 21.2 % (11.6-14.6)
[2023-01-01] MEDS: SODIUM BICARBONATE 650 MG TABLET PO SCH ×2 (08:57→13:00)
[2023-01-01] MEDS ORDERED: POTASSIUM CHLORIDE 20MEQ TABLET SR PO NR (09:15)
[2023-01-01] MEDS: ENOXAPARIN 30MG/0.3ML SYR SUBCUT SCH (13:00)
== END 2023-01-01 18:30 | disposition home or self-care (01) | DRG 673 ==
LOC: ER 14:21 → 6EST 12-30 00:11
PROVIDERS: ADMIT Internal Medicine; ATTEND Internal Medicine
PROC: 0JH63XZ Insertion of Tunneled Vascular Access Device into Chest Subcutaneous Tissue and Fascia, Percutaneous Approach (ICD-10-PCS; principal; 2022-12-30)
PROC: 02HV33Z Insertion of Infusion Device into Superior Vena Cava, Percutaneous Approach (ICD-10-PCS; 2022-12-30)
PROC: B5181ZA Fluoroscopy of Superior Vena Cava using Low Osmolar Contrast, Guidance (ICD-10-PCS; 2022-12-30)
PROC: B548ZZA Ultrasonography of Superior Vena Cava, Guidance (ICD-10-PCS; 2022-12-30)
PROC: 5A1D70Z Performance of Urinary Filtration, Intermittent, Less than 6 Hours Per Day (ICD-10-PCS; 2022-12-30)
PROC: 5A1D70Z Performance of Urinary Filtration, Intermittent, Less than 6 Hours Per Day (ICD-10-PCS; 2023-01-01)
DX: T82.41XA Breakdown (mechanical) of vascular dialysis catheter, initial encounter (principal); N18.6 End stage renal disease; I12.0 Hypertensive chronic kidney disease with stage 5 chronic kidney disease or end stage renal disease; E87.20 Acidosis, unspecified; E11.22 Type 2 diabetes mellitus with diabetic chronic kidney disease; Z99.2 Dependence on renal dialysis; D63.1 Anemia in chronic kidney disease; Z79.4 Long term (current) use of insulin; Y84.1 Kidney dialysis as the cause of abnormal reaction of the patient, or of later complication, without mention of misadventure at the time of the procedure; Y92.89 Other specified places as the place of occurrence of the external cause
CPT/HCPCS: 36415; 36558; 76937; 77001; 80048; 80053; 85025; 86705; 86709; 86803; 86850; 86900; 86920; 87340; 90935; 99152; 99153; 99285; C1725; C1750; C1769; J0690; J0885; J1200; J1642; J1650; J2405; J3010; J3490; P9016; G0500